=== PATIENT | female | born 1935 | race Hispanic/Latino ===

== ENCOUNTER → 2018-10-25 | Outpatient (CLI) | payer OTHER | END | disposition home or self-care (01) | LOC: OIH 09:24 | PROVIDERS: ATTEND Family Medicine | DX: R05 Cough (principal); M47.815 Spondylosis without myelopathy or radiculopathy, thoracolumbar region; M41.9 Scoliosis, unspecified | CPT/HCPCS: 71046 ==

== ENCOUNTER → 2019-06-05 | Outpatient (CLI) | payer OTHER | END | disposition home or self-care (01) | LOC: OIH 11:13 | PROVIDERS: ATTEND Family Medicine | DX: M79.622 Pain in left upper arm (principal); M25.512 Pain in left shoulder; M25.712 Osteophyte, left shoulder | CPT/HCPCS: 73030; 73060 ==

== ENCOUNTER → 2019-07-03 | Outpatient (CLI) | payer OTHER | END | disposition home or self-care (01) | LOC: RAH 08:56 | PROVIDERS: ATTEND Family Medicine | DX: I34.0 Nonrheumatic mitral (valve) insufficiency (principal); F02.80 Dementia in other diseases classified elsewhere, unspecified severity, without behavioral disturbance, psychotic disturbance, mood disturbance, and anxiety; I73.9 Peripheral vascular disease, unspecified | CPT/HCPCS: 93306; 93356 ==